=== PATIENT | female | born 1985 | race Caucasian/White ===

== ENCOUNTER → 2025-07-04 | Day surgery (SDC) | payer BC ==
[~2025-07-04] MED LIST: ACETAMINOPHEN 1000 MG/100 ML 100 ML IV ONE; BIOTIN 800 MCG1 EACH PO; BUPIVACAINE LIPOSOME/PF 266 MG/20 ML IJ ONE; BUPROPION HCL150 M2 PO; CALCIUM CITRAT200 MG PO; DEXAMETHASONE SOD PHOS INJ 4 MG/ML SDV ONE; EPHEDRINE SULFATE INJ 50 MG/ML VIAL ONE; FAMOTIDINE 20 MG/2 ML VIAL IV ONE; FENTANYL CITRATE/PF 100MCG/2 ML INJ ONE; IRON PO; KETOROLAC TROMETHAMINE 30 MG/ML VIAL ONE; LIDOCAINE HCL 2% LOCAL INJ 5 ML SDV VIAL INJ ONE; METHOCARBAMOL 100MG/1ML 10ML VIAL ONE; MIDAZOLAM HCL 2 MG/2 ML VIAL ONE; ONDANSETRON HCL INJ 2MG/ML 2ML 2 MG/ML VIAL ONE; PROPOFOL IV EMULSION 10 MG/ML 20 ML VIAL ONE; VIT B12 PO; ZEPBOUND7.5 MG/0.5 SC
[2025-07-04] MEDS: LACTATED RINGER'S 1,000 ML ONE (11:48)
[2025-07-04] MEDS: CEFAZOLIN SODIUM 2 GM ONE (11:48)
[2025-07-04 15:03] VITALS: BP 122/67; PULSE 77; RESP 18; O2SAT 98
== END | disposition home or self-care (01) ==
LOC: OR 10:10
PROVIDERS: ATTEND Podiatrist Foot & Ankle Surgery
DX: M20.11 Hallux valgus (acquired), right foot (principal); E11.9 Type 2 diabetes mellitus without complications; K21.9 Gastro-esophageal reflux disease without esophagitis; F41.9 Anxiety disorder, unspecified; F32.A Depression, unspecified; Z79.85 Long-term (current) use of injectable non-insulin antidiabetic drugs; Z79.899 Other long term (current) drug therapy
CPT/HCPCS: 28299; 81025; C1713 ×3; J0131; J0666; J1100; J1308; J1885; J2003; J2405; J2704; J2800; J3010; J7121; J2250